=== PATIENT | male | born 1970 | race Caucasian/White ===

== ENCOUNTER 2017-01-01 18:25 | Emergency (ER) | payer MEDICARE, OTHER ==
[2017-01-01 18:34] VITALS: BP 155/88
--- NOTE | 2017-01-01 19:11 | UC ---
Throat Pain/Nasal Anuj HPI - HPI Summary HPI Summary: pt presents with c/o nasal congestion, sinus pressure, "watery eyes", bilateral "ear fullness" nonproductive cough, "scratchy" throat. X 2days. Pt reports that he has allergies to Hay and he helped his CARLITOS "do Hay" 2 days ago. Pt has not taken an antihistamine. - History of Current Complaint Chief Complaint: UCGeneralIllness Stated Complaint: SINUS PRESSURE Time Seen by Provider: 01/01/17 18:32 Hx Obtained From: Patient Onset/Duration: Sudden Onset, Lasting Days - 2 Severity: Mild Cough: Nonproductive Associated Signs & Symptoms: Positive: Sinus Discomfort Related History: Seasonal Allergies - exposure to known allergen - Allergies/Home Medications Allergies/Adverse Reactions: Allergies Allergy/AdvReac Type Severity Reaction Status Date / Time Penicillins [PCN] Allergy Unknown Verified 01/01/17 18:29 Reaction Details Home Medications: Home Medications carBAMazepine TAB(*) [Tegretol TAB(*)] 400 mg PO BEDTIME 01/01/17 [History Confirmed 01/01/17] PMH/Surg Hx/FS Hx/Imm Hx Previously Healthy: Yes - Surgical History Surgical History: Yes Surgery Procedure, Year, and Place: LT SHOULDER 15 YRS AGO, LSP SURGERY 2010 AT [place] - Family History Known Family History: Positive: Other - positive [facility] for URI - Social History Lives: With Family Alcohol Use: Occasionally Substance Use Type: None Smoking Status (MU): Never Smoked Tobacco Review of Systems Constitutional: Negative Skin: Negative Eyes: Other - clear discharge, c/o of "Itchy eyes" ENT: Sore Throat, Sinus Congestion, Other - nasal congestion Respiratory: Cough - non productive Cardiovascular: Negative Gastrointestinal: Negative Genitourinary: Negative Motor: Negative Neurovascular: Negative Musculoskeletal: Negative Neurological: Headache Psychological: Negative All Other Systems Reviewed And Are Negative: Yes Physical Exam Triage Information Reviewed: Yes Appearance: Well-Appearing Vital Signs: Initial Vital Signs Temp 99.5 F 01/01/17 18:30 Pulse 87 01/01/17 18:30 Resp 16 01/01/17 18:30 BP 155/88 01/01/17 18:30 Pulse Ox 97 01/01/17 18:30 Eye Exam: Normal Eyes: Positive: Conjunctiva Clear, Discharge - clear ENT Exam: Other ENT: Positive: Nasal congestion, TM bulging Neck exam: Normal Respiratory Exam: Normal Cardiovascular Exam: Normal Musculoskeletal Exam: Normal Neurological Exam: Normal Psychological Exam: Normal Skin Exam: Normal Throat Pain/Nasal Course/Dx - Differential Dx/Diagnosis Differential Diagnosis/HQI/PQRI: URI, Other - allergic rhinitis Provider Diagnoses: allergic rhinitis Discharge - Discharge Plan Condition: Stable Disposition: HOME Prescriptions: Fexofenadine-Pseudoephedrine [Janette-D 24 Hour Allergy] 1 tab PO DAILY #7 tab Fluticasone NASAL SPRAY 50MCG* [Flonase NASAL SPRAY 50MCG*] 2 spray BOTH NARES DAILY #1 btl Patient Education Materials: Allergic Rhinitis (ED) Referrals: Khang Lei MD [Primary Care Provider] - If Needed
== END 2017-01-01 19:39 | disposition home or self-care (01) ==
LOC: UCCORT 18:25
DX: J30.9 Allergic rhinitis, unspecified (principal)
CPT/HCPCS: 99202; G0463